=== PATIENT | female | born 1985 ===

== ENCOUNTER → 2018-01-09 | Outpatient (CLI) | payer OTHER ==
[2018-01-09 10:25] LABS: PLATELET COUNT, AUTOMATED 198 K/uL (150-450)
--- NOTE | 2018-01-09 10:47 | EKG ---
FACILITY: PATIENT NAME: ROD WINN : [id number] MR: [id number] V: [id number] EXAM DATE: ORDERING PHYSICIAN: JANIS VEGA TECHNOLOGIST: JUSTO Test Reason : PALPITATIONS Blood Pressure : / mmHG Vent. Rate : 099 BPM Atrial Rate : 099 BPM P-R Int : 158 ms QRS Dur : 096 ms QT Int : 352 ms P-R-T Axes : 073 089 019 degrees QTc Int : 451 ms Normal sinus rhythm Biatrial enlargement Abnormal ECG No previous ECGs available Confirmed by JANIS VEGA ([id number]) on 01/10/2018 8:08:35 AM Referred By: GARY Confirmed By:JANIS VEGA
--- NOTE | 2018-01-09 10:47 | RADIOLOGY IMAGING REPORT ---
FACILITY: [facility] [place] PATIENT NAME: Danelle Maguire : 1985 MR: [id number] V: [id number] EXAM DATE: ORDERING PHYSICIAN: JANIS VEGA TECHNOLOGIST: [place] [facility] [place]: Danelle Maguire : 1985 Visit/Account:[id number] Date of Sevice: 01/09/2018 Exam type: CHEST PA AND LAT History: Palpitations, dyspnea Comparison: None. Findings: The lungs are free of acute effusions, infiltrates or edema. There is no evidence of a pneumothorax or pneumomediastinum. The cardiac silhouette is normal in size. The trachea is midline. Visualized bones are unremarkable for age IMPRESSION: 1. No acute cardiopulmonary process seen Report Dictated By: Miryam Quintero MD at 01/09/2018 10:43 AM Report E-Signed By: Miryam Quintero MD at 01/09/2018 10:43 AM WSN:[id number]
== END ==
LOC: RESP 09:55
PROVIDERS: ATTEND Emergency Medicine
DX: R00.2 Palpitations (principal); R94.31 Abnormal electrocardiogram [ECG] [EKG]
CPT/HCPCS: 36415; 71046; 82310; 82374; 82435; 82565; 82947; 83880; 84132; 84295; 84484; 84520; 85007; 85027; 85379

== ENCOUNTER → 2018-01-11 | Outpatient (CLI) | payer OTHER ==
--- NOTE | 2018-01-12 21:00 | RT HOLTER TEST ---
FACILITY: [facility] PATIENT NAME: ROD WINN : [id number] MR: [id number] V: [id number] EXAM DATE: ORDERING PHYSICIAN: JANIS VEGA TECHNOLOGIST: Justyn Hook-up date: 2018-01-11 13:08:00 Duration: 24:52:00 Test Indications: Palpitation Medications: [id number] QRS complexes 4 Ventricular ectopics which represent <1 % of total QRS comp. * Supraventricular ectopics which represent % of total QRS comp. * Paced QRS complexes which represent % of total QRS comp. VENTRICULAR ECTOPY 4 Isolated 0 Bigeminal Cycles 0 Couplets 0 Runs 0 Beats in Runs * Beats LONGEST at * BPM at :: -- * Beats FASTEST at * BPM at :: -- SUPRAVENTRICULAR ECTOPY * Isolated * Couplets * Runs * Beats in Runs * Beats LONGEST at * BPM at :: -- * Beats FASTEST at * BPM at :: -- HEART RATES 47 MIN at 04:46:40 2018-01-12 76 AVG 138 MAX at 12:46:07 2018-01-12 LONGEST RR 1.528 secs at 05:49:15 2018-01-12 S-T LEVELS Channel 1 -1.800 mm MIN at 16:36:00 2018-01-11 1.800 mm MAX at 11:57:00 2018-01-12 Channel 2 -1.600 mm MIN at 19:08:15 2018-01-11 2.000 mm MAX at 06:26:15 2018-01-12 Channel 3 -1.400 mm MIN at 09:12:45 2018-01-12 1.400 mm MAX at 15:39:15 2018-01-11 Maximum heart rate was sinus tachycardia at 138 beats per minute (BPM). Minimum heart rate was sinus bradycardia at 47 BPM. Diary entries of "heart pounding"and "palpitations" were associated with normal sinus rhythm at rates from 80 to 92 BPM. Di nay entry of "SOB, palpitations" was associated with normal sinus rhythm at 96 BPM and T wave abnormality in lead 3. Diary entries of "shopping, hea rt pounding" were associated with sinus rhythm with rate of 99 BPM and sinus tachycardia with rate of 102 BPM. There were T wave abnormalities in a ll leads. Diary entries of "walking the dog" were associated with sinus tachycardia at 126 BPM and 135 BPM also with T wave abnormalities in al l 3 leads There were 4 isolated PVCs and no PACs. No other arrhythmias were identified. Confirmed by BERYL POTTER ([id number]) on 01/12/2018 8:59:37 PM Referred By: Overread By: BERYL POTTER
== END ==
LOC: RESP 05:50
PROVIDERS: ATTEND Emergency Medicine
DX: R00.2 Palpitations (principal)
CPT/HCPCS: 93225; 93226

== ENCOUNTER → 2018-05-27 | Outpatient (CLI) | payer OTHER ==
[2018-05-27 15:20] LABS: PLATELET COUNT, AUTOMATED 223 K/uL (150-450)
== END ==
LOC: LAB 15:06
PROVIDERS: ATTEND Emergency Medicine
DX: E55.9 Vitamin D deficiency, unspecified (principal); D58.2 Other hemoglobinopathies
CPT/HCPCS: 36415; 82306; 82607; 85025

== ENCOUNTER → 2018-05-29 | Outpatient (CLI) | payer OTHER ==
[~2018-05-29] MED LIST: CYAN1000 IJ; CYAN1000 IM
== END ==
LOC: LAB 15:56
PROVIDERS: ATTEND Emergency Medicine
DX: E53.8 Deficiency of other specified B group vitamins (principal)
CPT/HCPCS: 82784; 83516; 83540; 83550; 86255; 86340

== ENCOUNTER → 2018-08-20 | Outpatient (CLI) | payer OTHER | LOC: LAB 15:12 | PROVIDERS: ATTEND Emergency Medicine | DX: E53.8 Deficiency of other specified B group vitamins (principal) | CPT/HCPCS: 36415; 82607 ==

== ENCOUNTER → 2018-12-18 | Outpatient (CLI) | payer OTHER ==
[~2018-12-18] MED LIST changes: +CYAN20003 PO
== END ==
LOC: AUD 08:00
PROVIDERS: ATTEND Emergency Medicine
DX: H93.19 Tinnitus, unspecified ear (principal)
CPT/HCPCS: 92557; 92570

== ENCOUNTER → 2019-01-16 | Outpatient (REF) ==
[2019-01-16 09:40] LABS: LDL CHOLESTEROL 108 mg/dl
== END ==
DX: Z02.89 Encounter for other administrative examinations (principal)

== ENCOUNTER → 2019-01-16 | Outpatient (CLI) | payer OTHER | LOC: LAB 08:07 | PROVIDERS: ATTEND Emergency Medicine | DX: E53.8 Deficiency of other specified B group vitamins (principal) | CPT/HCPCS: 36415; 82607 ==

== ENCOUNTER → 2019-01-30 | Outpatient (CLI) | payer OTHER | LOC: LAB 16:10 | PROVIDERS: ATTEND Emergency Medicine | DX: Z02.9 Encounter for administrative examinations, unspecified (principal) ==

== ENCOUNTER → 2019-01-31 | Outpatient (CLI) | payer OTHER | LOC: US 01:21 | PROVIDERS: ATTEND Emergency Medicine | DX: R39.15 Urgency of urination (principal); R94.31 Abnormal electrocardiogram [ECG] [EKG] | CPT/HCPCS: 81001; 93306 ==

== ENCOUNTER → 2019-04-18 | Outpatient (CLI) | payer OTHER | LOC: LAB 13:31 | PROVIDERS: ATTEND Emergency Medicine | DX: E53.8 Deficiency of other specified B group vitamins (principal) | CPT/HCPCS: 36415; 82607 ==